=== PATIENT | female | born 1980 | race Two or more races ===

== ENCOUNTER 2017-10-31 01:38 | Emergency (ER) | payer OTHER, MEDICAID ==
[2017-10-31] MEDS ORDERED: LORAZEPAM INJ 2 MG/1 ML VIAL IM ONE (04:37)
[2017-10-31] MEDS ORDERED: LORAZEPAM INJ 2 MG/1 ML VIAL ONE ×2 (04:38→06:59)
[2017-10-31] MEDS ORDERED: LORAZEPAM INJ 2 MG/1 ML VIAL IV ONE (04:40)
[2017-10-31] MEDS ORDERED: LEVETIRACETAM 1000 MG/NACL-ISO 1,000 MG/100 ML RTUPB IV ONE (04:42)
[2017-10-31] MEDS: NORMAL SALINE 1000 ML 1,000 ML IV PRN ×2 (04:45→06:00)
[2017-10-31] MEDS ORDERED: SUCCINYLCHOLINE CHLORIDE INJ 200 MG/10 ML VIAL IV ONE (04:54)
[2017-10-31] MEDS ORDERED: PROPOFOL 1,000 MG/100 ML INFUS..BTL IV PRN (04:55)
[2017-10-31 04:56] LABS: INTERNATIONAL RATION (INR) 0.97
[2017-10-31] MEDS ORDERED: PROPOFOL INJ 200 MG/20 ML VIAL IV ONE (04:56)
[2017-10-31 04:57] LABS: PARTIAL THROMBOPLASTIN TIME 24.2 SEC (23.5-35.8)
[2017-10-31 04:58] LABS: ABSOLUTE LYMPHOCYTES (AUTO) 2.2 10^3/uL (0.5-4.7); ABSOLUTE MONOCYTES (AUTO) 0.9 10^3/uL (0.1-1.4); ABSOLUTE NEUT (AUTO) 14.2 10^3/uL (1.7-8.2); BASOPHILS % (AUTO) 0.2 % (0-2); EOSINOPHILS % (AUTO) 0.2 % (0-6); HEMATOCRIT 40.4 % (36.0-47.0); HEMOGLOBIN 13.5 g/dL (12.0-15.5); LYMPHOCYTES % (AUTO) 12.5 % (13-45); MEAN CORPUSCULAR HEMOGLOBIN 30.5 pg (27.0-33.4); MEAN CORPUSCULAR HGB CONC 33.4 g/dL (32.0-36.0); MEAN CORPUSCULAR VOLUME 91 fl (80-97); PLATELET COUNT 345 10^3/uL (150-450); RED BLOOD COUNT 4.43 10^6/uL (3.72-5.28); SEGMENTED NEUTROPHILS % (AUTO) 82.1 % (42-78); TOTAL CELLS COUNTED % (AUTO) 100 %; WHITE BLOOD COUNT 17.2 10^3/uL (4.0-10.5)
[2017-10-31 05:01] LABS: PROTHROMBIN TIME 13.4 SEC (11.4-15.4)
[2017-10-31 05:07] LABS: ALANINE AMINOTRANSFERASE 34 U/L (9-52); ALBUMIN 4.8 g/dL (3.5-5.0); ALKALINE PHOSPHATASE 111 U/L (38-126); ANION GAP 16 (5-19); ASPARTATE AMINO TRANSFERASE 41 U/L (14-36); BILIRUBIN,DIRECT 0.3 mg/dL (0.0-0.4); BILIRUBIN,TOTAL 0.5 mg/dL (0.2-1.3); BLOOD UREA NITROGEN 8 mg/dL (7-20); CALCIUM 9.2 mg/dL (8.4-10.2); CARBON DIOXIDE 25 mmol/L (22-30); CHLORIDE 103 mmol/L (98-107); GLUCOSE 141 mg/dL (75-110); POTASSIUM 3.2 mmol/L (3.6-5.0); SODIUM 144.1 mmol/L (137-145); TOTAL PROTEIN 8.7 g/dL (6.3-8.2)
[2017-10-31] MEDS ORDERED: MANNITOL 500 ML IV ONE ×2 (05:32→05:39)
--- NOTE | 2017-10-31 05:38 | RADIOLOGY REPORT (SQ) ---
EXAM DESCRIPTION: XR CHEST 1 VIEW COMPLETED DATE/TME: 10/31/2017 00:00 CLINICAL HISTORY: 37 years Female, POSSIBLE STROKE/INTUBATION COMPARISON: None. NUMBER OF VIEWS/TECHNIQUE: 1/AP FINDINGS: Near complete opacification of the right hemithorax may involve lung collapse, moderate rightward cardiac shift/rotation, partially obscured right cardiac margin, endotracheal tube tip is 4.5 cm from the ana, adequate appearing enteric tube secured distally. IMPRESSION: Opacified right hemithorax which may involve lung collapse. Lines and tubes.
--- NOTE | 2017-10-31 06:07 | RADIOLOGY REPORT (SQ) ---
EXAM DESCRIPTION: CT HEAD WITHOUT IV CONTRAST COMPLETED DATE/TME: 10/31/2017 00:00 CLINICAL HISTORY: 37 years Female, seizure COMPARISON: None. TECHNIQUE: No contrast. Coronal and sagittal reformat. This exam was performed according to our departmental dose-optimization program, which includes automated exposure control, adjustment of the mA and/or kV according to patient size and/or use of iterative reconstruction technique. FINDINGS: Subarachnoid hemorrhage of bilateral temporal lobes, and small subdural hematoma along the frontal intercerebral falx measures up to 0.3 cm in thickness, diminished cordova-white differentiation, diffuse sulcal effacement, partially imaged enteric tube. No midline shift. Normal ventricles. Intact bony cranium. IMPRESSION: 1. Diffuse subarachnoid hemorrhage. Small subdural hemorrhage along the intercerebral falx. 2. Anoxic injury pattern. Critical results reporting: The results of the examination have been personally discussed with the referring health care provider, ER PROVIDER, immediately following interpretation of the examination on 10/31/2017 4:54 AM CDT.
--- NOTE | 2017-10-31 06:09 | ER Document Report ---
Doctor's Note Notes: 10/31/17 06:03 Patient was brought back to the room. 10 minutes after the patient was brought back to room she started seizing. I was in another patient's room and asked to come immediately to this patient's room. I ran immediately to Mrs. Jamison's room. When I arrived she was full-body tonic-clonic seizing. We she did not have an IV as of yet. So we gave her 2 mg Ativan IM. We gave her a 2nd dose of of Ativan IM because of the continued seizing while IV was being established. She continued to seize and started having some hypoxemia and therefore we got an IV and gave her propofol. Patient continued to seize and therefore we gave her another dose propofol and attempted to intubate. Patient did not stop seizing until she was given paralytics despite the doses of propofol. After she was given succinylcholine and I attempted to intubate her using a glide scope. I was only able to visual the very base of the larynx as she was very anterior. Tube would not pass. I therefore aborted and had the respiratory therapist continue to manually ventilate the patient and used I repositioned her and used 4 Bill manual blade and had a bougie. I was only able to see the epiglottis itself and could not get a good view of the larynx. I attempted to pass a bougie but I did not feel as if it waspassing into the the trachea itself and therefore aborted. I next attempted to intubate with a straight blade. I was unable to intubate with a straight blade. Patient was continued manually ventilated and was ventilating in the 90s with bag mask ventilation and a oral airway. She did have a desaturation into the 70s during my third intubation attempt. After the second attempt I did ask the charge nurse to contact anesthesia to come down to help. She went to call anesthesia. Patient was ventilated manually while we waited for anesthesia. She than started to vomit and continued to vomit and therefore I went to emergent chronic. I had a cric set up at bedside ready because I asked for it after my 2nd intubation attempt. After Cric was successfully performed CXR was performed to confirm appropriate tube placement and patient was brought immediately to CT scan which revealed a SAH. 10/31/17 06:27 A little after 6am I called [facility]. I spoke with the neurosurgeon, Dr. Moses, who accepts patient for transfer. has been updated on the situation throughout. All questions answered. Patient does not have evidence of herniation on CT scan or on exam and therefore mannitol was not given. This was discussed with Dr. Moses as well.
[2017-10-31] MEDS ORDERED: MIDAZOLAM HCL 50 MG/100 ML RTUINJ ONE (06:14)
[2017-10-31] MEDS ORDERED: MIDAZOLAM HCL 50 MG/100 ML RTUINJ IV PRN (06:15)
[2017-10-31] MEDS ORDERED: AMPICILLIN SOD/SULBACTAM 3 GM VIAL IV ONE ×2 (06:23→07:05)
[2017-10-31 06:38] LABS: ARTERIAL BLOOD BASE EXCESS -5.7 mmol/L; ARTERIAL BLOOD H2CO3 2.35 mmol/L (1.05-1.35); ARTERIAL BLOOD HCO3 24.9 mmol/L (20-26); ARTERIAL BLOOD O2 SATURATION 56.1 % (94-98); ARTERIAL BLOOD TOTAL CO2 27.3 mmol/L (21-25)
[2017-10-31 06:39] LABS: ARTERIAL BLOOD FIO2 100%
[2017-10-31 06:41] LABS: ARTERIAL BLOOD PCO2 78.2 mmHg (35-45); ARTERIAL BLOOD PH 7.12 (7.35-7.45); ARTERIAL BLOOD PO2 39.5 mmHg (80-100)
[2017-10-31 06:45] VITALS: BP 105/57
[2017-10-31] MEDS ORDERED: PROPOFOL 0 MG/0 ML INFUS..BTL IV ONE (06:46)
--- NOTE | 2017-10-31 06:46 | ER Document Report ---
ED General - General Chief Complaint: Headache Stated Complaint: HEADACHE Notes: She is a 37-year-old female who presents with complaint of severe headache that started at home just after midnight. called the 911 and patient was brought to the ER via ambulance. There was no bed availability and therefore patient was triaged by the triage nurse and put in a waiting room to wait for a bed. Patient was brought back to a bed 10 minutes after she was placed in the bed she started seizing. I immediately went to bedside. says the patient's mother has a history of cerebral aneurysm. Patient herself has no previous history of migraine headaches nor has a history of hypertension. No previous history of seizures. She is not on any blood thinning medications. No recent trauma or injuries. TRAVEL OUTSIDE OF THE [place] IN LAST 30 DAYS: No - Related Data Allergies/Adverse Reactions: No Known Allergies Allergy (Verified 12/29/15 19:22) Past Medical History - Social History Smoking Status: Current Every Day Smoker Frequency of alcohol use: None Drug Abuse: None Family History: Reviewed & Not Pertinent Patient has suicidal ideation: No - unable to assess Patient has homicidal ideation: No - unable to assess Renal/ Medical History: Denies: Hx Peritoneal Dialysis Psychiatric Medical History: Reports: Hx Anxiety, Hx Depression, Hx Post Traumatic Stress Disorder Past Surgical History: Reports: Hx Section - Immunizations Hx Diphtheria, Pertussis, Tetanus Vaccination: Yes Review of Systems - Review of Systems -: Yes ROS unobtainable due to patient's medical condition - unresponsive, seizing Physical Exam - Vital signs Vitals: Temp Pulse Resp BP Pulse Ox 98 F 56 L 20 189/98 H 96 10/31/17 01:45 10/31/17 01:45 10/31/17 01:45 10/31/17 01:45 10/31/17 01:45 - Notes Notes: General Appearance: Patient actively seizing Vitals: reviewed, See vital signs table. Head: no swelling or signs of trauma to the head Eyes: Pupils are approximately 3 mm and equal and reactive to light. Mouth: Tongue ring in place. Throat: No tonsillar inflammation, No airway obstruction, No lymphadenopathy Neck: No swelling of the neck Lungs: No wheezing, No rales, No rhonci, No accessory muscle use, good air exchange bilaterally. Heart: tachycardiac rate, Regular rythm, No murmur, no rub Abdomen: Soft abdomen, No rigidity, Extremities: good pulses in all extremities, no edema. Skin: warm, dry, appropriate color, no rash Neuro: Actively seizing. Patient is having full body tonic-clonic seizing with jaw clenching. Patient completely unresponsive during this episode. Course - Re-evaluation Re-evalutation: 10/31/17 06:40 10/31/17 06:03 Patient was brought back to the room. 10 minutes after the patient was brought back to room she started seizing. I was in another patient's room and asked to come immediately to this patient's room. I ran immediately to Mrs. Jamison's room. When I arrived she was full-body tonic-clonic seizing. We she did not have an IV as of yet. So we gave her 2 mg Ativan IM. We gave her a 2nd dose of of Ativan IM because of the continued seizing while IV was being established. She continued to seize and started having some hypoxemia and therefore we got an IV and gave her propofol. Patient continued to seize and therefore we gave her another dose propofol and attempted to intubate. Patient did not stop seizing until she was given paralytics despite the doses of propofol. After she was given succinylcholine and I attempted to intubate her using a glide scope. I was only able to visual the very base of the larynx as she was very anterior. Tube would not pass. I therefore aborted and had the respiratory therapist continue to manually ventilate the patient and used I repositioned her and used 4 Bill manual blade and had a bougie. I was only able to see the epiglottis itself and could not get a good view of the larynx. I attempted to pass a bougie but I did not feel as if it waspassing into the the trachea itself and therefore aborted. I next attempted to intubate with a straight blade. I was unable to intubate with a straight blade. Patient was continued manually ventilated and was ventilating in the 90s with bag mask ventilation and a oral airway. She did have a desaturation into the 70s during my third intubation attempt. After the second attempt I did ask the charge nurse to contact anesthesia to come down to help. She went to call anesthesia. Patient was ventilated manually while we waited for anesthesia. She than started to vomit and continued to vomit and therefore I went to emergent chronic. I already had a cricothyrotomy set up at bedside ready because I asked for it after my 2nd intubation attempt. After Cricothyrotomy was successfully performed, CXR was performed to confirm appropriate tube placement and patient was brought immediately to CT scan which revealed a SAH. Patient did desaturate down to 68 during the Cricothyotomy. Patient was immediately suctioned through the ET tube with inline suctioning and SpO2 went back into the 90s. 10/31/17 06:27 A little after 6am I called [facility]. I spoke with the neurosurgeon, Dr. Moses, who accepts patient for transfer. has been updated on the situation throughout. All questions answered. Patient does not have evidence of herniation on CT scan or on exam and therefore mannitol was not given. This was discussed with Dr. Moses as well. 10/31/17 06:40 10/31/17 06:45 On repeat neurologic evaluation patient's started having some purposeful movement and therefore Versed drip was added. Propofol was turned down to try to help prevent hypotension. Pupils remain equal and reactive to light. I will speak with the transfer team is just arrived in the report the patient be transferred to [facility]. 10/31/17 06:50 Unasyn started because of patient's aspiration. 10/31/17 07:34 I attempted to investigate why there was a delay in triaging the patient to a room in order to avoid any future delays with similar cases. The informed me that he did not tell the triage nurse about the patient's family history of cerebral aneurysm because the printed circuit board panels developer told him that aneurysms were not hereditary and therefore he did not think it would help in telling the triage nurse. I called the ambulance meter supervisor, Arnold Dylon, and discussed this with him and informed him of the need to further educate the paramedics about recognizing that any family history of SAH or aneurysm is very important and this needs to be passed on in report to the nursing staff or physician. I gave Mr. Osborne my phone number and informed him that I would be happy to talk to the medics myself to give feedback to help prevent future occurrences. I also reviewed with the charge nurse and structural engineering project manager the need to recognize a new onset headache with new onset HTN, without previous history of either, needs to be triaged as a priority. This way they can pass this information on to the triage nurses for further education and prevention of similar occurrences. Dictation of this chart was performed using voice recognition software; therefore, there may be some unintended grammatical errors. - Vital Signs Vital signs: Temp Pulse Resp BP Pulse Ox 95.6 F L 57 L 39 H 105/57 L 98 10/31/17 06:03 10/31/17 06:03 10/31/17 06:40 10/31/17 06:40 10/31/17 06:40 - Laboratory Result Diagrams: 10/31/17 04:45 10/31/17 04:45 Laboratory results interpreted by me: 10/31/17 10/31/17 10/31/17 04:45 04:45 06:30 WBC 17.2 H Seg Neutrophils % 82.1 H Lymphocytes % 12.5 L Absolute Neutrophils 14.2 H Carbonic Acid 2.35 H ABG pH 7.12 L* ABG pCO2 78.2 H* ABG pO2 39.5 L* ABG Total CO2 27.3 H ABG O2 Saturation 56.1 L Potassium 3.2 L Glucose 141 H AST 41 H Total Protein 8.7 H Procedures - Additional Procedures cricothyrotomy Notes: 10/31/17 07:29 Emergent cricothyroidotomy was performed because of patient's inability to orally intubate the patient having vomiting with aspiration and hypoxemia. Neck was cleaned with chloraprep. Vertical incision was made with scapel. Cricothyroid membrane was cut with scapel. I dilated membrane with dialator and than thread a bougie into the trachea. I than placed a 6-0 ET tube over the bougie. I removed the bougie and inflated the balloon and patient was ventilated and suction. Patient is diminished on the right initially but this is likely due to aspiration as this improved after inline suction. Tube was secured at 12 cm at the neck. CXR shows appropriate positioning. Critical Care Note - Critical Care Note Total time excluding time spent on procedures (mins): 45 Comments: Critical care time for this patient not including time spent on procedures approximately 45 minutes due to management of sedation, management blood pressure, management of subarachnoid hemorrhage. Discharge - Discharge Clinical Impression: SAH (subarachnoid hemorrhage) Aspiration into airway Qualifiers: Encounter type: initial encounter Qualified Code(s): T17.908A - Unspecified foreign body in respiratory tract, part unspecified causing other injury, initial encounter Condition: [facility] SUSY DURBIN MD [Primary Care Provider] - Follow up as needed
[2017-10-31] MEDS ORDERED: PROPOFOL 1,000 MG/100 ML INFUS..BTL IV ONE (07:01)
--- NOTE | 2017-10-31 11:34 | EKG REPORT ---
SEVERITY:- OTHERWISE NORMAL ECG - SINUS RHYTHM BORDERLINE PROLONGED QT INTERVAL : Confirmed by: Celine Hall MD 31-Oct-2017 11:33:45
== END 2017-10-31 07:10 | disposition short-term general hospital (02) ==
LOC: ER 01:38
DX: I60.9 Nontraumatic subarachnoid hemorrhage, unspecified (principal); T17.908A Unspecified foreign body in respiratory tract, part unspecified causing other injury, initial encounter; R51 Headache; R56.9 Unspecified convulsions; F17.200 Nicotine dependence, unspecified, uncomplicated; X58.XXXA Exposure to other specified factors, initial encounter
CPT/HCPCS: 93005; 36600; 99291; 96372; 96361; 51702; 96375; 96365; 96366; 36415; 82962; 82803; 85025; 85610; 85730; 80053; 71045; 70450; 94660; 93010; 31605; J0295; J2704 ×2; J2060; J0330; J2250; J7030; J1953; 94002